=== PATIENT | male | born 1980 | race American Indian/Alaskan Native ===

== ENCOUNTER 2018-07-13 13:52 | Emergency (ER) | payer MEDICAID ==
[2018-07-13 14:18] VITALS: BP 113/74; PULSE 87; RESP 18; TEMP 98.2; O2SAT 98
--- NOTE | 2018-07-13 15:36 | C.PDOC ---
History Of Present Illness 38 year old male presents to the ED requesting refill of his psychiatric mediations. Reports he ran out 2 days ago. Denies any physical complaints. Denies SI/HI, auditory or visual hallucinations. Time Seen by Provider: 07/13/18 14:53 Chief Complaint (Nursing): Med Refill History Per: Patient History/Exam Limitations: no limitations Past Medical History Reviewed: Historical Data, Nursing Documentation, Vital Signs Vital Signs: Last Vital Signs Temp 98.2 F 07/13/18 14:15 Pulse 87 07/13/18 14:15 Resp 18 07/13/18 14:15 BP 113/74 07/13/18 14:15 Pulse Ox 98 07/13/18 14:15 - Medical History PMH: Anxiety, Depression Surgical History: No Surg Hx Family History: States: No Known Family Hx - Social History Hx Alcohol Use: No Hx Substance Use: No - Immunization History Hx Tetanus Toxoid Vaccination: No Hx Influenza Vaccination: No Hx Pneumococcal Vaccination: No Review Of Systems Psych: Negative for: Suicidal ideation, Other (auditory/visual hallucinations ) Physical Exam - Physical Exam Appears: Non-toxic, No Acute Distress Skin: Warm, Dry, No Rash Head: Normacephalic Eye(s): bilateral: Normal Inspection Neck: Supple Chest: Symmetrical Cardiovascular: Rhythm Regular Respiratory: Normal Breath Sounds, No Rales, No Rhonchi, No Wheezing Gastrointestinal/Abdominal: Soft, No Tenderness Extremity: Normal ROM Neurological/Psych: Oriented x3, Normal Speech Gait: Steady ED Course And Treatment O2 Sat by Pulse Oximetry: 98 (RA) Pulse Ox Interpretation: Normal Medical Decision Making Medical Decision Making: Patient given Rx for Gabapentin and Seroquel. Patient given follow up instructions. Instructed to return to ER if symptoms worsen or new symptoms arise. Disposition Counseled Patient/Family Regarding: Diagnosis, Need For Followup, Rx Given - Disposition Disposition: HOME/ ROUTINE Disposition Time: 15:33 Condition: GOOD Additional Instructions: Follow up at [facility] today. Location information given. Take medications as prescribed. Return to ER for any worse symptoms. Prescriptions: Gabapentin 300 mg PO TID #30 capsule Quetiapine Fumarate [Seroquel] 50 mg PO BID PRN #20 tablet PRN Reason: Anxiety Forms: [facility] (Italian), General Discharge Instructions - Clinical Impression Clinical Impression: Medication refill - PA / [employer] / Resident Statement /DO has reviewed & agrees with the documentation as recorded. - Scribe Statement The provider has reviewed the documentation as recorded by the Scribe Charlotte Bajwa All medical record entries made by the Jaleelibe were at my direction and personally dictated by me. I have reviewed the chart and agree that the record accurately reflects my personal performance of the history, physical exam, medical decision making, and the department course for this patient. I have also personally directed, reviewed, and agree with the discharge instructions and disposition.
== END 2018-07-13 15:46 | disposition home or self-care (01) ==
LOC: C.ER 13:52
DX: Z76.0 Encounter for issue of repeat prescription (principal)

== ENCOUNTER 2018-07-29 08:03 | Emergency (ER) | payer MEDICAID ==
[2018-07-29 08:16] VITALS: BP 129/83; PULSE 105; RESP 18; TEMP 98.2; O2SAT 97
[2018-07-29] MEDS ORDERED: Tdap Vaccine 0.5 ml Vial (10-64 yrs) IM ONE (08:49)
--- NOTE | 2018-07-29 09:26 | C.PDOC ---
History Of Present Illness 38 y/o male,w/PMhx of depression and anxiety, presents to the ER complaining of subjective fever, chills, mild cough, sore throat, and body aches which have been present since yesterday. Patient denies having nausea, vomiting,abdominal pain, and diarrhea. Time Seen by Provider: 07/29/18 08:37 Chief Complaint (Nursing): Flu-like Symptoms History Per: Patient History/Exam Limitations: no limitations Onset/Duration Of Symptoms: Days Current Symptoms Are (Timing): Still Present Severity: Moderate Past Medical History Reviewed: Historical Data, Nursing Documentation, Vital Signs Vital Signs: Last Vital Signs Temp 98.2 F 07/29/18 08:13 Pulse 105 H 07/29/18 08:13 Resp 18 07/29/18 08:13 BP 129/83 07/29/18 08:13 Pulse Ox 97 07/29/18 08:13 - Medical History PMH: Anxiety, Depression Surgical History: No Surg Hx Family History: States: No Known Family Hx - Social History Hx Alcohol Use: No Hx Substance Use: No - Immunization History Hx Tetanus Toxoid Vaccination: Yes Hx Influenza Vaccination: No Hx Pneumococcal Vaccination: No Review Of Systems Except As Marked, All Systems Reviewed And Found Negative. Constitutional: Positive for: Fever (subjective fever), Chills, Malaise ENT: Positive for: Throat Pain Cardiovascular: Negative for: Chest Pain Respiratory: Positive for: Cough. Negative for: Shortness of Breath Gastrointestinal: Negative for: Nausea, Vomiting, Abdominal Pain Physical Exam - Physical Exam Appears: No Acute Distress, Other (sleeping) Skin: Normal Color, Warm, Dry Head: Atraumatic, Normacephalic Eye(s): bilateral: Normal Inspection Ear(s): Bilateral: Normal Nose: Normal Oral Mucosa: Moist Throat: Erythema, No Exudate Neck: Supple Chest: Symmetrical Cardiovascular: Rhythm Regular Respiratory: Normal Breath Sounds, No Rales, No Rhonchi, No Wheezing Gastrointestinal/Abdominal: Soft, No Tenderness, No Guarding, No Rebound Neurological/Psych: Oriented x3, Normal Speech ED Course And Treatment O2 Sat by Pulse Oximetry: 97 (RA) Pulse Ox Interpretation: Normal Medical Decision Making Medical Decision Making: Plan: --well appearin ginnad. vitals stable. flu albert symptoms will treat Disposition - Disposition Referrals: [facility] [Outside] [facility] [Outside] Disposition: HOME/ ROUTINE Disposition Time: 15:00 Condition: STABLE Additional Instructions: follow up in clinic return to er with worsening. Prescriptions: Oseltamivir Phosphate [Tamiflu] 75 mg PO BID #10 capsule Instructions: Flu, Adult (DC), Viral Syndrome (DC) Forms: [facility] (Angolan), Work Excuse - Clinical Impression Clinical Impression: Influenza-like illness - Scribe Statement Jasson Qureshi Provider Attestation: All medical record entries made by the Scribe were at my direction and personally dictated by me. I have reviewed the chart and agree that the record accurately reflects my personal performance of the history, physical exam, medical decision making, and the department course for this patient. I have also personally directed, reviewed, and agree with the discharge instructions and disposition.
== END 2018-07-29 09:01 | disposition home or self-care (01) ==
LOC: C.ER 08:03
DX: J11.1 Influenza due to unidentified influenza virus with other respiratory manifestations (principal)